=== PATIENT | female | born 1980 | race Caucasian/White ===

== ENCOUNTER 2024-02-12 17:56 | Emergency (ER) | payer MEDICAID ==
[~2024-02-12] VITALS: Ht 172.7 cm; Wt 91.0 kg
[2024-02-12 18:05] VITALS: TEMP 98.3
[2024-02-12] MEDS: ACETAMINOPHEN 500 MG TABLET PO ONE (18:30)
[2024-02-12] MEDS: BACITRACIN 0.9 GM PACKET OINTMENT TP ONE (18:30)
[2024-02-12] MEDS: OxyCODONE HCL 5 MG IR TABLET PO ONE (21:45)
[2024-02-12] MEDS ORDERED: IBUP-1492 PO (22:34)
[2024-02-12 23:04] VITALS: BP 137/86; PULSE 83; RESP 16
== END 2024-02-12 23:30 | disposition home or self-care (01) ==
LOC: EMS 17:57
DX: S02.2XXA Fracture of nasal bones, initial encounter for closed fracture (principal); Y04.0XXA Assault by unarmed brawl or fight, initial encounter; Y93.89 Activity, other specified; Y92.89 Other specified places as the place of occurrence of the external cause; Y99.8 Other external cause status
CPT/HCPCS: 70450; 70486; 72125; 99284